=== PATIENT | male | born 1935 | race Caucasian/White ===

== ENCOUNTER 2019-03-02 15:30 | Inpatient (IN) | payer MEDICARE, BC ==
[~2019-03-02] VITALS: Ht 170.2 cm; Wt 72.7 kg
[2019-03-02 16:01] VITALS: BP 104/46; PULSE 102; TEMP 98.8
[2019-03-02] MEDS ORDERED: LIPITOR 40MG TA40 MG PO (16:44)
[2019-03-02] MEDS ORDERED: VITAMIND3 5000 PO (16:45)
[2019-03-02] MEDS ORDERED: NOVOLOG FLEX100 U/ML SQ (16:46)
[2019-03-02] MEDS ORDERED: PRINIVIL10 MG PO (16:49)
[2019-03-02] MEDS ORDERED: FOLIC ACID 11 MG/TA1 PO (16:49)
[2019-03-02] MEDS ORDERED: ACTIGALL 300MG300 MG PO (16:49)
[2019-03-02] MEDS ORDERED: PROTONIX 40MG T40 MG PO (16:49)
[2019-03-02] MEDS ORDERED: TRADJENTA5 MG PO (16:50)
[2019-03-02] MEDS ORDERED: GLUCOTROL 5M5 MG/TAB PO (16:50)
--- NOTE | 2019-03-02 18:09 | NUR ---
Completed assessment and medication reconsiliation for new direct admit from [facility]; Received PT at completion of receiving one unit of PRBC; PT A&Ox4, HRRR with TELE in place, LFA 18G and RFA 20G IV in place; lungs CTAB, BS active x4; PT has HX of alcoholism; Family in room for education and plan for EGD/colonoscopy scheduled 1440 on 03/03/19; PT report understanding for plan without no further questions; PT able to return to comfortable position in bed with personal items and call light within reach; Will continue to monitor. CDA
[2019-03-02 18:28] LABS: BASO # 0.1 (0.0-0.2); BASO % 0.7 % (0.0-2.0); EOS # 0.1 (0.0-0.7); EOS % 1.2 % (0-4.0); GRAN # 5.7 (1.4-6.5); GRAN % 75.9 % (42.2-75.2); LYMPH # 0.8 (1.2-3.4); LYMPH % 10.3 % (20.0-51.0); MEAN CELL VOLUME 87 fl (80.0-100.0); MEAN CORPUSCULAR HGB CONC 32 g/dl (33.0-37.0); MEAN PLATELET VOLUME 11.3 fl (7.4-10.4); MONO # 0.8 (0.1-0.6); MONO % 10.8 % (1.7-9.3); PLATELET COUNT 83 K/mm3 (130-400); REDCELL DISTRIBUTION WIDTH-CV 14.6 % (11.5-14.5)
[2019-03-02 18:31] LABS: HEMOGLOBIN 8.4 g/dl (13.5-18.0); MEAN CORPUSCULAR HEMOGLOBIN 28 pg (27.0-31.0)
[2019-03-02 18:47] LABS: ALBUMIN 2.9 gm/dL (3.5-5.0); BILIRUBIN,TOTAL 0.8 mg/dL (0.0-1.0); CREATININE, serum 1.62 (0.66-1.25); POTASSIUM 3.7 mmol/L (3.4-5.0); TOTAL PROTEIN 6.1 gm/dL (6.4-8.2)
[2019-03-02 19:42] VITALS: BP 133/51; PULSE 98; TEMP 98.3
--- NOTE | 2019-03-02 20:00 | NUR ---
Initial shift assessment done- bowel prep started at this time- judith-pt states understanding- will use [facility]- undertands to call for assistance to [facility],, alert/oriented, Tele on, will be NPO after MN for EGD, Colonoscopy in afternoon--no requests at this time. IV fluids of NS at 100cc/hr
[2019-03-02 23:24] VITALS: BP 131/60; PULSE 99; TEMP 97.6
[2019-03-03] VITALS (12 sets, daily range): BP systolic 97–139; BP diastolic 38–66; PULSE 78–93; TEMP 97.3–98.7
--- NOTE | 2019-03-03 06:00 | NUR ---
Did get some sleep after MN-- finished all of the golytely by 2300--had stools most of the night-- totally clear this morning. NPO
[2019-03-03 07:29] LABS: BASO % 0.7 % (0.0-2.0); EOS # 0.1 (0.0-0.7); EOS % 1.8 % (0-4.0); GRAN % 69.1 % (42.2-75.2); LYMPH # 0.7 (1.2-3.4); MEAN CELL VOLUME 87 fl (80.0-100.0); MEAN CORPUSCULAR HGB CONC 32 g/dl (33.0-37.0); MEAN PLATELET VOLUME 11.6 fl (7.4-10.4); MONO # 0.5 (0.1-0.6); MONO % 11.7 % (1.7-9.3); PLATELET COUNT 66 K/mm3 (130-400); RED BLOOD COUNT 2.56 M/mm3 (4.20-5.60); REDCELL DISTRIBUTION WIDTH-CV 14.7 % (11.5-14.5)
[2019-03-03 07:31] LABS: HEMATOCRIT 22.2 % (42.0-52.0); HEMOGLOBIN 7.2 g/dl (13.5-18.0); MEAN CORPUSCULAR HEMOGLOBIN 28 pg (27.0-31.0)
[2019-03-03 07:39] LABS: ALBUMIN 2.4 gm/dL (3.5-5.0); BILIRUBIN,TOTAL 0.7 mg/dL (0.0-1.0); CALCIUM 7.4 mg/dL (8.4-10.2); CREATININE, serum 1.24 (0.66-1.25); POTASSIUM 3.5 mmol/L (3.4-5.0); TOTAL PROTEIN 5.4 gm/dL (6.4-8.2)
--- NOTE | 2019-03-03 09:15 | NUR ---
Pt lying in bed, denies any pain at this time. Completed morning assessment. Denies any shortness of breath, breathing even and unlabored. Bowel prep complete, spoke with Endo and pt is scheduled for procedure at 1pm. Informed pt. Pt requesting shower, encouraged pt to take it slow if feeling weak. Pt has been NPO since midnight. Denies any other needs at this time. Will continue to monitor. Call light in reach.
--- NOTE | 2019-03-03 10:29 | NUR ---
Initial visit; Patient thanked Network Infrastructure Architect for looking in on him and offering encouragement and spiritual care.
[2019-03-03 12:39] LABS: PH 6 (5-8); SQUAMOUS EPITHELIAL None Seen /hpf; URINE APPEARANCE Clear; URINE BACTERIA None Seen /hpf; URINE BILIRUBIN Negative (NEGATIVE); URINE BLOOD Negative (NEGATIVE); URINE COLOR Yellow; URINE GLUCOSE 1+ (NEGATIVE); URINE KETONE Negative (NEGATIVE); URINE LEUKOCYTE ESTERASE Negative (NEGATIVE); URINE NITRATE Negative (NEGATIVE); URINE PROTEIN(semi-quant) Negative (NEGATIVE); URINE RBC 0-2 /hpf; URINE UROBILINOGEN Negative (NEGATIVE)
[2019-03-03 12:42] LABS: COLLECTION METHOD CLEAN CATCH
--- NOTE | 2019-03-03 13:15 | NUR ---
Pt off floor for procedure.
--- NOTE | 2019-03-03 14:30 | NUR ---
Pt in room from procedure. Alert and oriented X4. Post op vitals began. Grandaughters at bedside. New medication list given. Will reconcile medications. denies any other needs at this time.
--- NOTE | 2019-03-03 16:18 | NUR ---
SW met with patient and family about discharge planning. Patient lives at home alone in [place]. Patient does have family support. Patient's PCP is Dr Zaragoza and he obtains prescriptions from [facility]. Patient uses a cane but no other DME is reported. Patient does not have any home health services. Patient reports he does have a DPOA and [facility] should have a copy. SW will request a copy. Patient's family inquired if patient would be eligible for a skilled stay for post acute rehab. SW reported that medicare has certain requirements, including a 3 midnight hospitalization. SW reported that she will request a PT and OT consult to see if patient requires SNF from a PT and OT perspective. Patient is not interested in home health because he is not homebound. SW will continue to follow and assist with discharge needs.
[2019-03-03] MEDS ORDERED: SINEMET 25/101 UDTAB PO (18:13)
--- NOTE | 2019-03-03 19:02 | NUR ---
Hand off report given to Herminia HUNT. Pt finished dinner, denies any needs at this time.
--- NOTE | 2019-03-03 20:46 | NUR ---
PT RESTING IN BED A+OX4. REPORTS NO PAIN. IV FLUIDS DC AT THIS TIME. NO SOA. PT REPORTS HE WILL CALL WHEN NEEDING TO GET UP FOR BR. IV FLUSHES WELL, NO REDNESS NO SWELLING. NO NEEDS AT THIS TIME, CALL LIGHT IN REACH
--- NOTE | 2019-03-04 01:47 | NUR ---
PT RESTING IN BED. NO INSULIN REQUIRED AT 0000. TELE ON. PT CALLING WHEN NEEDING TO USE THE RESTROOM. NO NEEDS AT THIS TIME. CALL LIGHT IN REACH
[2019-03-04 04:08] VITALS: BP 104/46; PULSE 84; TEMP 97.9
[2019-03-04 06:58] VITALS: BP 103/45; PULSE 82; TEMP 98.1
--- NOTE | 2019-03-04 06:58 | NUR ---
PT HAD AN UNEVENTFUL NIGHT. BLOOD PRESSURES ARE LOW THROUGHOUT THE NIGHT. REPORTED NO PAIN. INSULIN GIVEN PER ORDERED. BLOOD GLUCOSE THIS AM 151. IV FLUSHES WELL, NO REDNESS, NO SWELLING. NO NEEDS AT THIS TIME. CALL LIGHT IN REACH
--- NOTE | 2019-03-04 07:00 | NUR ---
REPORT GIVEN TO GILBERT BUSTAMANTE
[2019-03-04 07:09] LABS: BASO % 0.8 % (0.0-2.0); EOS # 0.1 (0.0-0.7); EOS % 2.4 % (0-4.0); GRAN # 2.6 (1.4-6.5); GRAN % 71.3 % (42.2-75.2); LYMPH # 0.6 (1.2-3.4); LYMPH % 15.5 % (20.0-51.0); MEAN CELL VOLUME 88 fl (80.0-100.0); MEAN CORPUSCULAR HGB CONC 32 g/dl (33.0-37.0); MEAN PLATELET VOLUME 11.9 fl (7.4-10.4); MONO # 0.3 (0.1-0.6); MONO % 9.2 % (1.7-9.3); PLATELET COUNT 64 K/mm3 (130-400); RED BLOOD COUNT 2.62 M/mm3 (4.20-5.60); REDCELL DISTRIBUTION WIDTH-CV 14.6 % (11.5-14.5)
[2019-03-04 07:23] LABS: CALCIUM 7.5 mg/dL (8.4-10.2); CREATININE, serum 1.07 (0.66-1.25); POTASSIUM 3.6 mmol/L (3.4-5.0)
[2019-03-04 08:04] LABS: HEMOGLOBIN 7.3 g/dl (13.5-18.0); MEAN CORPUSCULAR HEMOGLOBIN 28 pg (27.0-31.0)
--- NOTE | 2019-03-04 10:26 | NUR ---
Follow-up visit; Patient appeared to be anxiously awaiting a visit from his Physician and states he hopes to go home today. Patient seemed glad Area Director Of Home Health Sales looked in on him again to wish him well.
--- NOTE | 2019-03-04 11:25 | NUR ---
Pt resting in bed, denies any pain. C/o mild discomfort to abdomen. Breathing even and unlabored. Completed morning assessment. Denies any nausea this morning, tolerated his clear liquid breakfast well. Breath sounds clear on auscultation. Bp still low, held his lisinopril. Will continue to monitor. Call light in reach.
[2019-03-04 12:53] VITALS: BP 127/78; PULSE 94; TEMP 98.2
--- NOTE | 2019-03-04 14:23 | NUR ---
SW met with patient about discharge plan. Patient was seen by PT and they reported that patient does not require any post acute rehab. SW inquired if patient was interested in home health. Patient reports he is not interested because he is not home bound. Patient will likely discharge later today.
[2019-03-04] MEDS ORDERED: IFEREX 150150 MG PO (14:50)
--- NOTE | 2019-03-04 16:30 | NUR ---
Discharge paperwork given, all questions asked and answered. INT to right and left forearm removed, catheter tip intact, no redness or swelling to either site. Michaelruss has all belongings. Pt wheeled out by [facility] staff.
== END 2019-03-04 16:45 | disposition home or self-care (01) | DRG 369 ==
LOC: MEDICAL 15:30
PROVIDERS: Internal Medicine Gastroenterology; Physician Assistant; ADMIT Family Medicine
PROC: 06L38CZ Occlusion of Esophageal Vein with Extraluminal Device, Via Natural or Artificial Opening Endoscopic (ICD-10-PCS; principal; 2019-03-03 13:15)
DX: I85.01 Esophageal varices with bleeding (principal); D62 Acute posthemorrhagic anemia; K92.0 Hematemesis; E11.9 Type 2 diabetes mellitus without complications; I10 Essential (primary) hypertension; F10.10 Alcohol abuse, uncomplicated
CPT/HCPCS: 99222-AI; 99233-AI; 99239; C9113; J1815; J2704; J2916; J7030

== ENCOUNTER 2019-04-01 09:00 | Day surgery (SDC) | payer MEDICARE, BC ==
[~2019-04-01] VITALS: Ht 170.2 cm; Wt 77.2 kg
[~2019-04-01 09:00] MED LIST: ACTIGALL 300MG300 MG PO; FOLIC ACID 11 MG/TA1 PO; GLUCOTROL 5M5 MG/TAB PO; IFEREX 150150 MG PO; LIPITOR 40MG TA40 MG PO; NOVOLOG FLEX100 U/ML SQ; PRINIVIL10 MG PO; PROTONIX 40MG T40 MG PO; SINEMET 25/101 UDTAB PO; TRADJENTA5 MG PO; VITAMIND3 5000 PO
[2019-04-01 09:58] VITALS: BP 150/69; PULSE 91; TEMP 98.3
[2019-04-01 11:40] VITALS: BP 125/58; PULSE 86; TEMP 97.6
--- NOTE | 2019-04-01 11:40 | NUR ---
The patient arrived back to [place] [facility] from the [facility] at this time. The patient appears alert and oriented and ambulated from the cart to the recliner in his room with the stand by assistance of two nurses and appeared to tolerate the activity well. Post procedure vital signs were started at this time. The patient's son in law is at his bedside at this time. The patient requests to try some ice water and jello at this time. Call light is within reach. Will continue to monitor the patient.
[2019-04-01 11:55] VITALS: BP 126/65; PULSE 76
--- NOTE | 2019-04-01 11:55 | NUR ---
The patient appears to be tolerating the food and drink well. The patient's vital signs appear stable. The patient's family remains at his bedside. Will continue to monitor the patient.
[2019-04-01 12:10] VITALS: BP 142/76; PULSE 84
--- NOTE | 2019-04-01 12:10 | NUR ---
The patient has finished his jello and denies wanting anything further to eat at this time. The patient is waiting to speak with doctor prior to discharge.
--- NOTE | 2019-04-01 12:25 | NUR ---
Discharge instructions were reviewed with the patient and his son in law at this time. They both verbalized understanding and have no questions for the nurse at this time. The patient's IV to his right wrist was removed and a pressure dressing was applied. The nurse instructed the patient to get dressed.
[2019-04-01 12:28] VITALS: BP 124/69; PULSE 84
--- NOTE | 2019-04-01 12:33 | NUR ---
The patient was escorted out via wheelchair to a private vehicle by GILBERT Brown. The patient's belongings and discharge paperwork were sent with him. The patietn's son in law is present to drive him home.
== END 2019-04-01 12:33 | disposition home or self-care (01) ==
LOC: SDCO 09:00
DX: K74.60 Unspecified cirrhosis of liver (principal); I85.10 Secondary esophageal varices without bleeding; K92.2 Gastrointestinal hemorrhage, unspecified; I10 Essential (primary) hypertension; I25.10 Atherosclerotic heart disease of native coronary artery without angina pectoris; G47.33 Obstructive sleep apnea (adult) (pediatric); K21.9 Gastro-esophageal reflux disease without esophagitis; E78.5 Hyperlipidemia, unspecified; E11.9 Type 2 diabetes mellitus without complications; D69.6 Thrombocytopenia, unspecified; Z79.84 Long term (current) use of oral hypoglycemic drugs; Z86.010 Personal history of colon polyps
CPT/HCPCS: J7030

== ENCOUNTER 2019-05-06 08:23 | Day surgery (SDC) | payer MEDICARE, BC ==
[~2019-05-06] VITALS: Ht 170.2 cm; Wt 75.0 kg
[~2019-05-06 08:23] MED LIST changes: -GLUCOTROL 5M5 MG/TAB PO; +GLUCOTROL10 MG PO
[2019-05-06 09:10] VITALS: BP 131/62; PULSE 78; TEMP 97.2
[2019-05-06 09:55] VITALS: BP 112/59; PULSE 79; TEMP 96.9
--- NOTE | 2019-05-06 09:55 | NUR ---
Pt to [facility] via cart from [facility]. Pt drowsy, but awake. Pt transfers to recliner with 2 assist. VSS. Warm blanket provided. Granddaughter in room. Pudding, Applesauce and water providedper request. Will continue to monitor. Call light within reach.
[2019-05-06 10:10] VITALS: BP 119/63; PULSE 78
--- NOTE | 2019-05-06 10:10 | NUR ---
Pt continues to rest. Tolerating food and fluids without difficulties. Call light within reach.
[2019-05-06 10:25] VITALS: BP 127/62; PULSE 79
--- NOTE | 2019-05-06 10:25 | NUR ---
Pt continues to rest. Denies needs. Call light within reach.
[2019-05-06 10:40] VITALS: BP 138/63; PULSE 81
--- NOTE | 2019-05-06 10:40 | NUR ---
Discharge instructions reviewed. Pt and granddaughter voice understanding. IV site discontinued with all parts intact. Pt up to dress. Call light within reach.
--- NOTE | 2019-05-06 10:50 | NUR ---
Pt escorted to private car via wheel chair. Pt accompanied home by his granddaughter.
== END 2019-05-06 11:50 | disposition home or self-care (01) ==
LOC: SDCO 08:23
DX: K74.60 Unspecified cirrhosis of liver (principal); I85.01 Esophageal varices with bleeding; K31.84 Gastroparesis; I25.10 Atherosclerotic heart disease of native coronary artery without angina pectoris; I10 Essential (primary) hypertension; G47.33 Obstructive sleep apnea (adult) (pediatric); K21.9 Gastro-esophageal reflux disease without esophagitis; E11.9 Type 2 diabetes mellitus without complications; D69.6 Thrombocytopenia, unspecified; Z88.8 Allergy status to other drugs, medicaments and biological substances; Z79.84 Long term (current) use of oral hypoglycemic drugs
CPT/HCPCS: J2704; J7030

== ENCOUNTER 2019-06-10 07:27 | Day surgery (SDC) | payer MEDICARE, BC ==
[~2019-06-10] VITALS: Ht 170.2 cm; Wt 76.0 kg
[~2019-06-10 07:27] MED LIST changes: +GLUCOTROL XL10 MG PO; -GLUCOTROL10 MG PO
[2019-06-10 08:11] VITALS: BP 144/67; PULSE 86; TEMP 97
[2019-06-10 09:20] VITALS: BP 138/70; PULSE 79
--- NOTE | 2019-06-10 09:20 | NUR ---
Patient returns to [facility] per cart and transfers from the cart to recliner with two person assist. IV fluids infusing #22G RA. Call light in reach and friend in room. Allowed to rest.
--- NOTE | 2019-06-10 09:30 | NUR ---
Dr. Grajeda here and talks with the patient and friend.
[2019-06-10 09:35] VITALS: BP 150/77; PULSE 86
--- NOTE | 2019-06-10 09:35 | NUR ---
Eating pudding and drinking juice. IV fluids continue to infuse.
[2019-06-10 09:50] VITALS: BP 162/91; PULSE 81
--- NOTE | 2019-06-10 09:50 | NUR ---
Tolerated snack and fluids. IV discontinued and site is free of redness.
--- NOTE | 2019-06-10 09:55 | NUR ---
Given dismissal instructions and voices understanding of home and follow up in four weeks. Instructed that the office will call with appointment date and time. Assisted with dressing and into wheelchair.
--- NOTE | 2019-06-10 09:58 | NUR ---
Patient dismissed to home per private vehicle driven by friend and taken to the front door per wheelchair and assisted into vehicle by this RN with instructions in hand.
== END 2019-06-10 09:58 | disposition home or self-care (01) ==
LOC: SDCO 07:27
DX: I85.00 Esophageal varices without bleeding (principal); K74.60 Unspecified cirrhosis of liver; Z79.899 Other long term (current) drug therapy; I25.10 Atherosclerotic heart disease of native coronary artery without angina pectoris; I10 Essential (primary) hypertension; K21.9 Gastro-esophageal reflux disease without esophagitis; G47.33 Obstructive sleep apnea (adult) (pediatric); E11.9 Type 2 diabetes mellitus without complications; Z79.84 Long term (current) use of oral hypoglycemic drugs; Z88.8 Allergy status to other drugs, medicaments and biological substances; D69.6 Thrombocytopenia, unspecified; D64.9 Anemia, unspecified
CPT/HCPCS: J2704; J7030

== ENCOUNTER 2019-07-08 09:52 | Day surgery (SDC) | payer MEDICARE, BC ==
[~2019-07-08] VITALS: Ht 170.2 cm; Wt 77.7 kg
[2019-07-08 10:12] VITALS: BP 138/64; PULSE 79; TEMP 98.4
[2019-07-08 11:20] VITALS: BP 117/52; PULSE 74; TEMP 97.9
--- NOTE | 2019-07-08 11:20 | NUR ---
Patient brought back to [facility] [address] via cart. Ambulated to chair without difficulty. Placed on monitors, vital signs stable. Patient denies any pain or nausea. States he would like a water and pudding. Larry at bedside. Will continue to monitor.
[2019-07-08 11:35] VITALS: BP 132/66; PULSE 73
--- NOTE | 2019-07-08 11:35 | NUR ---
Patient tolerating food and drink without difficulty. Vital signs stable. Will continue to monitor.
[2019-07-08 11:50] VITALS: BP 139/68; PULSE 78
--- NOTE | 2019-07-08 11:50 | NUR ---
Patient waiting to speak with MD at this time. Will continue to monitor.
[2019-07-08 12:05] VITALS: BP 142/67; PULSE 76
--- NOTE | 2019-07-08 12:30 | NUR ---
Pt tolerated water and pudding. VS remain stable. Up to void, ambulated with SBA to bathroom. IV removed and pressure dressing applied. Pt dressed and discharge teaching completed. Pt and granddaughter verbalized understanding. Taken via wheelchair to private vehicle for dc home with granddaughter driving.
== END 2019-07-08 12:30 | disposition home or self-care (01) ==
LOC: SDCO 09:52
DX: K74.60 Unspecified cirrhosis of liver (principal); I85.10 Secondary esophageal varices without bleeding; K29.30 Chronic superficial gastritis without bleeding; I25.10 Atherosclerotic heart disease of native coronary artery without angina pectoris; I10 Essential (primary) hypertension; E78.5 Hyperlipidemia, unspecified; G47.33 Obstructive sleep apnea (adult) (pediatric); K21.9 Gastro-esophageal reflux disease without esophagitis; E11.9 Type 2 diabetes mellitus without complications; D64.9 Anemia, unspecified; G25.9 Extrapyramidal and movement disorder, unspecified; Z88.8 Allergy status to other drugs, medicaments and biological substances; Z79.84 Long term (current) use of oral hypoglycemic drugs
CPT/HCPCS: J2704

== ENCOUNTER 2020-01-13 08:13 | Day surgery (SDC) | payer MEDICARE, BC ==
[~2020-01-13] VITALS: Ht 170.2 cm; Wt 76.5 kg
[2020-01-13] MEDS ORDERED: TOUJEO300 U/ML SQ (08:29)
[2020-01-13] MEDS ORDERED: KRISTALOSE10 GM/PACK PO (08:29)
[2020-01-13 08:56] VITALS: BP 123/79; PULSE 73; TEMP 97.3
[2020-01-13 09:20] VITALS: BP 105/59; PULSE 79; TEMP 97
--- NOTE | 2020-01-13 09:20 | NUR ---
Patient arrives to [facility] via cart, accompanied by Endo RN Linh Clifford. He is alert and oriented. He ambulates to the chair in the room with 2:1 assist. Monitoring is applied - VSS and WNL on room air. He denies any pain or nausea. He is offered and receives water and jello to eat. Call light in reach.
[2020-01-13 09:35] VITALS: BP 132/71; PULSE 73
--- NOTE | 2020-01-13 09:35 | NUR ---
Patient is resting comfortably in room. He has finished his jello and is sipping his water. He is tolerating PO well.
[2020-01-13 09:50] VITALS: BP 131/67; PULSE 70
--- NOTE | 2020-01-13 09:50 | NUR ---
VSS and WNL on room air. Denies any pain, nausea, or need. Discharge criteria has been met. Discharge instructions are discussed. He denies any questions and verbalizes understanding. PIV is removed with catheter intact and hemostasis achieved. Assisted patient to change to his clothes. Waiting for the doctor to talk to him prior to discharge.
--- NOTE | 2020-01-13 10:06 | NUR ---
Dr. Grajeda gives order that patient may discharge to home without speaking to him if he would like to go home.
--- NOTE | 2020-01-13 10:15 | NUR ---
Patient is escorted to the exit via wheelchair by staff. He is discharged to home with ride in private vehicle at 1015. His granddaughter, Ana, is updated on how the procedure went.
== END 2020-01-13 10:15 | disposition home or self-care (01) ==
LOC: SDCO 08:13
DX: K74.60 Unspecified cirrhosis of liver (principal); I85.10 Secondary esophageal varices without bleeding; K31.7 Polyp of stomach and duodenum; I25.10 Atherosclerotic heart disease of native coronary artery without angina pectoris; I10 Essential (primary) hypertension; E78.5 Hyperlipidemia, unspecified; G47.33 Obstructive sleep apnea (adult) (pediatric); K21.9 Gastro-esophageal reflux disease without esophagitis; G25.81 Restless legs syndrome; E11.9 Type 2 diabetes mellitus without complications; Z79.84 Long term (current) use of oral hypoglycemic drugs; Z88.8 Allergy status to other drugs, medicaments and biological substances; Z79.899 Other long term (current) drug therapy
CPT/HCPCS: J2704; J7030